=== PATIENT | female | born 1995 | race Caucasian/White ===

== ENCOUNTER 2017-06-21 18:59 | Emergency (ER) | payer OTHER ==
[2017-06-21 19:31] VITALS: BP 130/63
--- NOTE | 2017-06-21 19:49 | ER Document Report ---
ED Medical Screen (RME) - General Chief Complaint: Sore Throat Stated Complaint: THROAT PAIN Time Seen by Provider: 06/21/17 19:44 Notes: Pt states she has a sore throat today, feels like she has a lump in her throat and is drooling. [place] the lump after throwing up. Can't keeping anything down. Has been spitting her saliva out because swallowing makes it worse. No fever or recent illness. No nausea or vomiting at this time. Pt is currently 9 weeks . I have greeted and performed a rapid initial assessment of this patient. A comprehensive ED assessment and evaluation of the patient, analysis of test results and completion of the medical decision making process will be conducted by additional ED providers. TRAVEL OUTSIDE OF THE [place] IN LAST 30 DAYS: No - Related Data Allergies/Adverse Reactions: No Known Allergies Allergy (Unverified 06/21/17 19:03) Physical Exam - Vital signs Vitals: Temp Pulse Resp BP Pulse Ox 98.5 F 71 18 130/63 H 100 06/21/17 19:30 06/21/17 19:30 06/21/17 19:30 06/21/17 19:30 06/21/17 19:30 Course - Vital Signs Vital signs: Temp Pulse Resp BP Pulse Ox 98.5 F 71 18 130/63 H 100 06/21/17 19:30 06/21/17 19:30 06/21/17 19:30 06/21/17 19:30 06/21/17 19:30
[2017-06-21] MEDS ORDERED: NORMAL SALINE 1000 ML 1,000 ML IV ONE (22:10)
[2017-06-21] MEDS ORDERED: METOCLOPRAMIDE HCL INJ/PF 10 MG/2 ML SDV IV ONE (22:11)
[2017-06-21 23:03] LABS: ABSOLUTE LYMPHOCYTES (AUTO) 2.5 10^3/uL (0.5-4.7); ABSOLUTE MONOCYTES (AUTO) 0.9 10^3/uL (0.1-1.4); ABSOLUTE NEUT (AUTO) 12.1 10^3/uL (1.7-8.2); BASOPHILS % (AUTO) 0.2 % (0-2); EOSINOPHILS % (AUTO) 0.1 % (0-6); HEMATOCRIT 43.2 % (36.0-47.0); HGB HCT DIFFERENCE 1.8; LYMPHOCYTES % (AUTO) 15.9 % (13-45); MEAN CORPUSCULAR HEMOGLOBIN 31.9 pg (27.0-33.4); MEAN CORPUSCULAR HGB CONC 34.8 g/dL (32.0-36.0); MEAN CORPUSCULAR VOLUME 92 fl (80-97); RED BLOOD COUNT 4.72 10^6/uL (3.72-5.28); RED CELL DISTRIBUTION WIDTH 12.8 % (11.5-14.0); SEGMENTED NEUTROPHILS % (AUTO) 77.8 % (42-78); WHITE BLOOD COUNT 15.6 10^3/uL (4.0-10.5)
[2017-06-21 23:21] LABS: ALANINE AMINOTRANSFERASE 34 U/L (9-52); ALBUMIN 5.1 g/dL (3.5-5.0); ALKALINE PHOSPHATASE 73 U/L (38-126); ANION GAP 15 (5-19); ASPARTATE AMINO TRANSFERASE 31 U/L (14-36); BILIRUBIN,DIRECT 0.5 mg/dL (0.0-0.4); BILIRUBIN,TOTAL 0.7 mg/dL (0.2-1.3); BLOOD UREA NITROGEN 8 mg/dL (7-20); CALCIUM 10.3 mg/dL (8.4-10.2); CARBON DIOXIDE 24 mmol/L (22-30); CHLORIDE 101 mmol/L (98-107); CREATININE RESULT 0.58 mg/dL (0.52-1.25); GLUCOSE 80 mg/dL (75-110); POTASSIUM 3.6 mmol/L (3.6-5.0); SODIUM 140.3 mmol/L (137-145); TOTAL PROTEIN 9.5 g/dL (6.3-8.2)
--- NOTE | 2017-06-21 23:39 | ER Document Report ---
ED General - General Chief Complaint: Sore Throat Stated Complaint: THROAT PAIN Time Seen by Provider: 06/21/17 19:44 Mode of Arrival: Ambulatory Information source: Patient Notes: Patient is a 21-year-old female comes emergency room with complaint of vomiting. Patient states that she is 9 weeks she has been having vomiting since day 1 of her and is taking Zofran for currently. Patient states that tonight she ate some chili cheese tater tots. When she started throwing up patient had an irritation in her throat and felt like there was something blocking the area which caused her continuous vomiting. She had thought it is much she could so she came in tonight for relief. TRAVEL OUTSIDE OF THE [place] IN LAST 30 DAYS: No - HPI Patient complains to provider of: Vomiting Onset: Just prior to arrival Onset/Duration: Sudden Quality of pain: Achy, Sharp, Stabbing Severity: Moderate Pain Level: 3 Context: 9 weeks Associated symptoms: Nausea, Vomiting Exacerbated by: Other - Swallowing Relieved by: Denies Similar symptoms previously: Yes Recently seen / treated by doctor: Yes - Related Data Allergies/Adverse Reactions: No Known Allergies Allergy (Unverified 06/21/17 19:03) Past Medical History - General Information source: Patient Last Menstrual Period: Greater than 9 months ago - Social History Smoking Status: Never Smoker Chew tobacco use (# tins/day): No Smoking Education Provided: No Frequency of alcohol use: None Drug Abuse: None Lives with: Family Family History: Reviewed & Not Pertinent Patient has suicidal ideation: No Patient has homicidal ideation: No Renal/ Medical History: Denies: Hx Peritoneal Dialysis Past Surgical History: Reports: Hx Orthopedic Surgery - l knee Review of Systems - Review of Systems Constitutional: No symptoms reported EENT: No symptoms reported Cardiovascular: No symptoms reported Respiratory: No symptoms reported Gastrointestinal: Nausea, Vomiting Genitourinary: No symptoms reported Female Genitourinary: No symptoms reported Musculoskeletal: No symptoms reported Skin: No symptoms reported Hematologic/Lymphatic: No symptoms reported Neurological/Psychological: No symptoms reported -: Yes All other systems reviewed and negative Physical Exam - Vital signs Vitals: Temp Pulse Resp BP Pulse Ox 98.5 F 71 18 130/63 H 100 06/21/17 19:30 06/21/17 19:30 06/21/17 19:30 06/21/17 19:30 06/21/17 19:30 Interpretation: Hypertensive - General General appearance: Alert, Other - Uncomfortable appearing - HEENT Head: Normocephalic, Atraumatic Mouth/Lips: Normal Mucous membranes: Moist Pharynx: Other - Examination posterior pharynx shows moderate amount of erythema in the posterior portion. There appears to be no signs of bleeding currently. There is no abnormal mass or pocket or obstructions that can be seen on physical examination. Appears patient has got irritated and is causing a feeling of discomfort Neck: Normal - Respiratory Respiratory status: No respiratory distress Chest status: Nontender Breath sounds: Normal Chest palpation: Normal - Cardiovascular Rhythm: Regular Heart sounds: Normal auscultation Murmur: No - Neurological Neuro grossly intact: Yes Orientation: AAOx4 El Coma Scale Eye Opening: Spontaneous [place] Coma Scale Verbal: Oriented [place] Coma Scale Motor: Obeys Commands [place] Coma Scale Total: 15 Speech: Normal - Skin Skin Temperature: Warm Skin Moisture: Dry Skin Color: Normal, [place] Course - Vital Signs Vital signs: Temp Pulse Resp BP Pulse Ox 98.5 F 71 18 130/63 H 100 06/21/17 19:30 06/21/17 19:30 06/21/17 19:30 06/21/17 19:30 06/21/17 19:30 - Laboratory Result Diagrams: 06/21/17 22:39 06/21/17 22:39 Laboratory results interpreted by me: 06/21/17 22:39 Calcium 10.3 H Direct Bilirubin 0.5 H Total Protein 9.5 H Albumin 5.1 H - Transfer of Care Notes: 06/21/17 23:40 Patient was given a bolus of fluids and also Reglan 10 IV for her vomiting and discomfort. Once patient started to get the Reglan her symptoms of a obstruction in her throat feeling or irritation in the throat went away completely. Patient states that she is ready to go home after receiving nearly 900 of normal saline and the Reglan. She does not want to stay until the labs are done and she does not want any further treatment at this time she is "tired and hungry and wants to go to sleep. At this point I believe this is a satisfactory solution without patient having sign out AGAINST MEDICAL ADVICE. We will stop the rest of the IV and we will send her home a little Magic mouthwash where she can swish or gargle and spit to alleviate the discomfort in her throat and Reglan for nausea and vomiting. 06/21/17 23:41 Discharge - Discharge Clinical Impression: Hyperemesis gravidarum, Vomiting during Condition: Good Disposition: HOME, SELF-CARE Instructions: Antinausea Medication ([facility]), Intravenous (IV) Fluids ([facility]), Reglan ([facility]), Sore Throat ([facility]) Additional Instructions: Home rest. Continue your Zofran as prescribed by your training developer or your OB doctor. We will try to use on some Reglan as well. Should you have any concerns or problems return to ER for recheck. Highly suggest avoiding any kind of foods that can be irritating or rough or acidic or even like soda that is got carbonation. This all irritates the throat. Clear liquids for the next 2448 hrs. and advance then as tolerated with soft foods. Return to ER should you have any exacerbation of the vomiting and unable to keep food down. Prescriptions: Metoclopramide HCl [Reglan 10 mg Tablet] 10 mg PO ASDIR PRN #30 tablet PRN Reason:
== END 2017-06-22 00:12 | disposition home or self-care (01) ==
LOC: ER 18:59
DX: O21.0 Mild hyperemesis gravidarum (principal); O21.9 Vomiting of pregnancy, unspecified; Z3A.09 9 weeks gestation of pregnancy
CPT/HCPCS: 99283; 96361; 96374; 36415; 85025; 80053; J2765; J7030

== ENCOUNTER 2018-08-16 08:54 | Emergency (ER) | payer OTHER ==
[2018-08-16] MEDS ORDERED: PSEUDOEPHEDRINE HCL 30 MG TABLET PO ONE (09:49)
[2018-08-16] MEDS ORDERED: IBUPROFEN 800 MG TABLET PO ONE (09:49)
--- NOTE | 2018-08-16 11:07 | RADIOLOGY REPORT (SQ) ---
EXAM DESCRIPTION: CHEST 2 VIEWS COMPLETED DATE/TIME: 08/16/2018 10:49 am REASON FOR STUDY: cough COMPARISON: None. EXAM PARAMETERS: NUMBER OF VIEWS: two views TECHNIQUE: Digital Frontal and Lateral radiographic views of the chest acquired. RADIATION DOSE: NA LIMITATIONS: none FINDINGS: LUNGS AND PLEURA: No opacities, masses or pneumothorax. No pleural effusion. MEDIASTINUM AND HILAR STRUCTURES: No masses or contour abnormalities. HEART AND VASCULAR STRUCTURES: Heart normal size. No evidence for failure. BONES: No acute findings. HARDWARE: None in the chest. OTHER: No other significant finding. IMPRESSION: NO ACUTE RADIOGRAPHIC FINDING IN THE CHEST. TECHNICAL DOCUMENTATION: JOB ID: [id number] [employer]- All Rights Reserved Reading location - IP/workstation name: [email or web address]
--- NOTE | 2018-08-16 11:23 | ER Document Report ---
HPI - HPI Patient complains to provider of: Cold symptoms Time Seen by Provider: 08/16/18 09:37 Onset: Other - 3 days Onset/Duration: Persistent Quality of pain: Achy Pain Level: 4 Context: Patient presents complaining of cold symptoms for the past 3 days. Patient states she had similar symptoms about 2 weeks ago but her symptoms improved. Patient states she has body aches sinus pressure congestion cough and sore throat. Patient denies any fever. Associated Symptoms: Nonproductive cough, Headache, Rhinnorhea, Sinus pain/drainage, Sore throat. denies: Fever Exacerbated by: Denies Relieved by: Denies Similar symptoms previously: Yes Recently seen / treated by doctor: Yes - ROS ROS below otherwise negative: Yes Systems Reviewed and Negative: Yes All other systems reviewed and negative - CONSTITUTIONAL Constitutional: REPORTS: Chills. DENIES: Fever - EENT EENT: REPORTS: Sore Throat, Nasal Drainage-Clear, Congestion - NEURO Neurology: REPORTS: Headache - RESPIRATORY Respiratory: REPORTS: Coughing - GASTROINTESTINAL Gastrointestinal: DENIES: Nausea, Patient vomiting - REPRODUCTIVE Reproductive: DENIES: : - DERM Skin Color: Normal Skin Problems: None Past Medical History - General Information source: Patient - Social History Smoking Status: Never Smoker Frequency of alcohol use: None Drug Abuse: None Lives with: Family Family History: Reviewed & Not Pertinent Patient has suicidal ideation: No Patient has homicidal ideation: No - Medical History Medical History: Negative Pulmonary Medical History: Reports: Hx Pneumonia Renal/ Medical History: Denies: Hx Peritoneal Dialysis Past Surgical History: Reports: Hx Orthopedic Surgery - l knee Vertical Provider Document - CONSTITUTIONAL Agree With Documented VS: Yes Exam Limitations: No Limitations General Appearance: WD/WN, No Apparent Distress - INFECTION CONTROL TRAVEL OUTSIDE OF THE [place] IN LAST 30 DAYS: No - HEENT HEENT: Atraumatic, Normocephalic, Pharyngeal Tenderness, Pharyngeal Erythema. negative: Pharyngeal Exudate, Tympanic Membrane Red, Tympanic Membrane Bulging - NECK Neck: Normal Inspection, Supple. negative: Lymphadenopathy-Left, Lymphadenopathy-Right - RESPIRATORY Respiratory: No Respiratory Distress, Chest Non-Tender, Other - Dry cough - CARDIOVASCULAR Cardiovascular: Regular Rate, Regular Rhythm, No Murmur - GI/ABDOMEN Gastrointestinal: Abdomen Soft - BACK Back: Normal Inspection - MUSCULOSKELETAL/EXTREMETIES Musculoskeletal/Extremeties: MILLA HERNANDEZ - NEURO Level of Consciousness: Awake, Alert, Appropriate Motor/Sensory: No Motor Deficit, No Sensory Deficit - DERM Integumentary: Warm, Dry, No Rash Course - Re-evaluation Re-evalutation: 08/16/18 11:20 Patient respirations even unlabored, nontoxic in appearance. Patient without any evidence for pneumonia or strep throat at this time. Good return precautions discussed - Vital Signs Vital signs: Temp Pulse Resp BP Pulse Ox 98.7 F 105 H 16 126/79 H 98 08/16/18 09:00 08/16/18 09:00 08/16/18 09:00 08/16/18 09:00 08/16/18 09:00 - Laboratory Laboratory results interpreted by me: 08/16/18 11:21 Labs- Entire Visit 08/16/18 09:50 Group A Strep Rapid NEGATIVE - Diagnostic Test Radiology reviewed: Reports reviewed Discharge - Discharge Clinical Impression: Sinus congestion Upper respiratory infection Qualifiers: URI type: unspecified URI Qualified Code(s): J06.9 - Acute upper respiratory infection, unspecified Condition: Stable Disposition: HOME, SELF-CARE Instructions: Acetaminophen, Sore Throat ([facility]), Upper Respiratory Illness ([facility]) Additional Instructions: Return immediately for any new or worsening symptoms Followup with your primary care provider, call tomorrow to make a followup appointment Throat culture is pending, will call if you need any different treatment Prescriptions: Benzonatate [Tessalon Perle 100 mg Capsule] 100 mg PO Q8HP PRN #20 cap PRN Reason: Guaifenesin/Pseudoephedrne HCl [Mucinex D ER 1,200-120 mg Tab] 1 each PO BID #12 tab.er.12h Naproxen [Naprosyn 250 Nmg Tablet] 1 tab PO BID #14 tablet Referrals: KATHERINE GILL PA-C [Primary Care Provider] - Follow up tomorrow
[2018-08-16 11:40] VITALS: BP 112/75
== END 2018-08-16 11:40 | disposition home or self-care (01) ==
LOC: ER 08:54
DX: J06.9 Acute upper respiratory infection, unspecified (principal); R09.81 Nasal congestion; M79.10 Myalgia, unspecified site; R05 Cough; J02.9 Acute pharyngitis, unspecified; R51 Headache; J34.89 Other specified disorders of nose and nasal sinuses
CPT/HCPCS: 71046; 87070; 87880; 99283

== ENCOUNTER 2018-08-30 06:58 | Emergency (ER) | payer OTHER ==
[2018-08-30] MEDS ORDERED: NORMAL SALINE 1000 ML 1,000 ML IV ONE ×2 (07:54→09:10)
[2018-08-30] MEDS ORDERED: ONDANSETRON HCL INJ/PF 4 MG/2 ML SDV IV ONE (07:55)
[2018-08-30 08:14] LABS: ABSOLUTE EOSINOPHILS # (AUTO) 0.2 10^3/uL (0.0-0.6); ABSOLUTE NEUT (AUTO) 10.3 10^3/uL (1.7-8.2); BASOPHILS % (AUTO) 0.2 % (0-2); EOSINOPHILS % (AUTO) 1.2 % (0-6); HEMATOCRIT 47.3 % (36.0-47.0); HEMOGLOBIN 16.1 g/dL (12.0-15.5); LYMPHOCYTES % (AUTO) 8.1 % (13-45); MEAN CORPUSCULAR HEMOGLOBIN 29.5 pg (27.0-33.4); MEAN CORPUSCULAR VOLUME 87 fl (80-97); MONOCYTES % (AUTO) 7.9 % (3-13); PLATELET COUNT 240 10^3/uL (150-450); RED BLOOD COUNT 5.46 10^6/uL (3.72-5.28); RED CELL DISTRIBUTION WIDTH 13.7 % (11.5-14.0); SEGMENTED NEUTROPHILS % (AUTO) 82.6 % (42-78); TOTAL CELLS COUNTED % (AUTO) 100 %; WHITE BLOOD COUNT 12.4 10^3/uL (4.0-10.5)
[2018-08-30 08:26] LABS: A TYPE INFLUENZA AG NEGATIVE (NEGATIVE)
[2018-08-30 08:27] LABS: B INFLUENZA AG NEGATIVE (NEGATIVE)
[2018-08-30 08:31] LABS: ALANINE AMINOTRANSFERASE 26 U/L (9-52); ALBUMIN 4.8 g/dL (3.5-5.0); ALKALINE PHOSPHATASE 107 U/L (38-126); ANION GAP 13 (5-19); ASPARTATE AMINO TRANSFERASE 23 U/L (14-36); BILIRUBIN,DIRECT 0.1 mg/dL (0.0-0.4); BILIRUBIN,TOTAL 0.4 mg/dL (0.2-1.3); BLOOD UREA NITROGEN 15 mg/dL (7-20); CALCIUM 9.7 mg/dL (8.4-10.2); CARBON DIOXIDE 25 mmol/L (22-30); CHLORIDE 104 mmol/L (98-107); GLUCOSE 102 mg/dL (75-110); POTASSIUM 4.4 mmol/L (3.6-5.0); SODIUM 142.1 mmol/L (137-145); TOTAL PROTEIN 8.3 g/dL (6.3-8.2)
[2018-08-30] MEDS ORDERED: FAMOTIDINE INJ/PF 20 MG/2 ML SDV IV ONE (09:09)
[2018-08-30 09:53] LABS: APPEARANCE,URINE CLOUDY; BILIRUBIN,URINE NEGATIVE (NEGATIVE); COLOR,URINE YELLOW; GLUCOSE, URINE NEGATIVE (NEGATIVE); KETONES,URINE NEGATIVE (NEGATIVE); LEUKOCYTE ESTERASE,URINE SMALL (NEGATIVE); NITRITE,URINE NEGATIVE (NEGATIVE); PROTEIN,URINE NEGATIVE (NEGATIVE); URINE SPECIFIC GRAVITY 1.023; UROBILINOGEN,URINE NEGATIVE mg/dL (<2.0)
[2018-08-30] MEDS ORDERED: MAG HYDROX/AL HYDROX/SIMETH SUSP 30 ML UDCUP PO ONE (10:02)
[2018-08-30] MEDS ORDERED: LIDOCAINE 2% VISCOUS SOLN 20 ML UDCUP PO ONE (10:02)
[2018-08-30] MEDS ORDERED: DICYCLOMINE HCL 20 MG TABLET PO ONE (11:13)
--- NOTE | 2018-08-30 11:21 | ER Document Report ---
ED General - General Chief Complaint: Nausea/Vomiting/Diarrhea Stated Complaint: VOMITING Time Seen by Provider: 08/30/18 07:53 Primary Care Provider: KATHERINE GILL PA-C [Primary Care Provider] - Follow up as needed TRAVEL OUTSIDE OF THE [place] IN LAST 30 DAYS: No - HPI Patient complains to provider of: Nausea vomiting diarrhea Notes: Patient coming in for evaluation of nausea vomiting diarrhea patient states symptoms ongoing for the last 2 days patient also complains of epigastric abdominal pain pain whenever she eats. Patient has a history of peptic ulcer disease however denies ever having an EGD being performed. Patient denies any recent travel or antibiotics. Resting comfortably upon my evaluation. Patient denies sick contacts. Upon my evaluation is received Zofran IV fluids is resting healthily. A brief review of the patient's past medical records available in [email or web address] was performed - Related Data Allergies/Adverse Reactions: Sulfa (Sulfonamide Antibiotics) Allergy (Verified 08/30/18 08:59) Past Medical History - Social History Smoking Status: Never Smoker Frequency of alcohol use: Rare Drug Abuse: None Family History: Reviewed & Not Pertinent Patient has suicidal ideation: No Patient has homicidal ideation: No Pulmonary Medical History: Reports: Hx Pneumonia Renal/ Medical History: Denies: Hx Peritoneal Dialysis GI Medical History: Reports: Hx Ulcer Past Surgical History: Reports: Hx Orthopedic Surgery - l knee Review of Systems - Review of Systems Constitutional: No symptoms reported EENT: No symptoms reported Cardiovascular: No symptoms reported Respiratory: No symptoms reported Gastrointestinal: Diarrhea, Nausea, Vomiting Genitourinary: No symptoms reported Female Genitourinary: No symptoms reported Musculoskeletal: No symptoms reported Skin: No symptoms reported Hematologic/Lymphatic: No symptoms reported Neurological/Psychological: No symptoms reported -: Yes All other systems reviewed and negative Physical Exam - Vital signs Vitals: Temp Pulse Resp BP Pulse Ox 97.8 F 108 H 22 H 130/80 H 97 08/30/18 06:58 08/30/18 06:58 08/30/18 06:58 08/30/18 06:58 08/30/18 06:58 Interpretation: Normal - General General appearance: Appears well, Alert - HEENT Head: Normocephalic, Atraumatic Eyes: Normal Pupils: PERRL - Respiratory Respiratory status: No respiratory distress Chest status: Nontender Breath sounds: Normal Chest palpation: Normal - Cardiovascular Rhythm: Regular Heart sounds: Normal auscultation Murmur: No - Abdominal Inspection: Normal Distension: No distension Bowel sounds: Normal Tenderness: Nontender Organomegaly: No organomegaly - Back Back: Normal, Nontender - Extremities General upper extremity: Normal inspection, Nontender, Normal color, Normal ROM, Normal temperature General lower extremity: Normal inspection, Nontender, Normal color, Normal ROM, Normal temperature, Normal weight bearing. No: Hardik's sign - Neurological Neuro grossly intact: Yes Cognition: Normal Orientation: AAOx4 [place] Coma Scale Eye Opening: Spontaneous [place] Coma Scale Verbal: Oriented [place] Com[place] Scale Motor: Obeys Commands [place] Coma Scale Total: 15 Speech: Normal Motor strength normal: LUE, RUE, LLE, RLE Sensory: Normal - Psychological Associated symptoms: Normal affect, Normal mood - Skin Skin Temperature: Warm Skin Moisture: Dry Skin Color: Normal Course - Re-evaluation Re-evalutation: 08/30/18 14:06 The patient presents with abdominal pain nausea vomiting diarrhea without signs of peritonitis or other life-threatening or serious etiology. The patient a ppears stable for discharge and has been instructed to return immediately if the symptoms worsen in any way, or in 8-12hr if not improved for re-evaluation. The patient has been instructed to return if the symptoms worsen or change in any way. - Vital Signs Vital signs: Temp Pulse Resp BP Pulse Ox 98.0 F 88 18 124/87 H 98 08/30/18 11:35 08/30/18 11:35 08/30/18 11:35 08/30/18 11:35 08/30/18 11:35 - Laboratory Result Diagrams: 08/30/18 07:53 08/30/18 07:53 Laboratory results interpreted by me: 08/30/18 08/30/18 08/30/18 07:53 07:53 09:33 WBC 12.4 H RBC 5.46 H Hgb 16.1 H Hct 47.3 H Seg Neutrophils % 82.6 H Lymphocytes % 8.1 L Absolute Neutrophils 10.3 H Total Protein 8.3 H Ur Leukocyte Esterase SMALL H Discharge - Discharge Clinical Impression: Nausea vomiting and diarrhea Condition: Good Disposition: HOME, SELF-CARE Instructions: Gastroenteritis (adult) ([facility]) Additional Instructions: Your evaluation does not show any critical pathology. We recommend a clear liquid diet for the next 24 hours then advance as tolerated to starchy foods such as crackers toast. I will highly recommend she take the Zofran or Phenergan as prescribed for your nausea vomiting. Will also recommend starting omeprazole. sHe may also try Bentyl as prescribed along with Tylenol for your pain control. Follow-up with your primary care physician return to ER symptoms worsen. Prescriptions: Dicyclomine HCl [Bentyl 20 mg Tablet] 20 mg PO QID #30 tablet Omeprazole 20 mg PO DAILY #30 capsule. Ondansetron [Zofran Odt 4 mg Tablet] 1 - 2 tab PO Q4H PRN #30 tab.rapdis PRN Reason: For Nausea/Vomiting Promethazine HCl [Phenergan 25 mg Tablet] 25 mg PO Q6 #30 tablet Forms: Return to Work Referrals: KATHERINE GILL PA-C [Primary Care Provider] - Follow up as needed
[2018-08-30 11:40] VITALS: BP 124/87
== END 2018-08-30 11:41 | disposition home or self-care (01) ==
LOC: ER 06:58
DX: R11.2 Nausea with vomiting, unspecified (principal); R19.7 Diarrhea, unspecified; R10.13 Epigastric pain; Z87.11 Personal history of peptic ulcer disease; Z88.2 Allergy status to sulfonamides
CPT/HCPCS: 99284; 96361; 96374; 96375; 36415; 87070; 87880; 84702; 83690; 85025; 80053; 81001; 87804; J3490 ×2; J2405; J7030; S0028